=== PATIENT | female | born 1960 | race Caucasian/White ===

== ENCOUNTER 2018-07-27 10:13 | Emergency (ER) | payer OTHER ==
[2018-07-27] MEDS: METHYLPREDNISOLONE 125 MG INJ IM (11:19)
[2018-07-27] MEDS: DIPHENHYDRAMINE 50 MG CAP PO (11:19)
[2018-07-27] MEDS: FAMOTIDINE 20 MG TAB PO (11:19)
== END 2018-07-27 11:56 | disposition home or self-care (01) ==
LOC: FTE 10:13
DX: H02.841 Edema of right upper eyelid (principal); H02.842 Edema of right lower eyelid
CPT/HCPCS: 96372; 99284-25; J2930